=== PATIENT | female | born 1960 | race Caucasian/White ===

== ENCOUNTER → 2018-01-04 | Outpatient (CLI) | payer OTHER ==
[~2018-01-04] MED LIST: ACYCLOVIR 800800 MG PO; AMLODIPINE BESY10 MG PO; ASPIR 8181 MG PO; ASPIRIN325 PO; COLACE100 MG PO; EFFIENT10 MG PO; LIPITOR 20 MG T20 M1 PO; LIPITOR40 MG PO; PREDNISONE 10 M10 MG PO; PROTONIX40 M1 PO
[2018-01-04 12:22] LABS: CHOLESTEROL 151 mg/dL (<200); HDL CHOLESTEROL 54 mg/dL (>40); LDL CHOLESTEROL 82 mg/dL (<100); TC:HDL 2.8 Ratio (Not establshd); TRIGLYCERIDE 76 mg/dL (<150); VLDL 15 mg/dL (<40)
[2018-01-04 12:24] LABS: SERUM ASSESSMENT Clear
== END ==
LOC: M.RAD 11:33 → M.LAB 11:33
PROVIDERS: Internal Medicine Cardiovascular Disease
DX: Z12.31 Encounter for screening mammogram for malignant neoplasm of breast (principal); E78.2 Mixed hyperlipidemia